=== PATIENT | female | born 1955 | race Caucasian/White ===

== ENCOUNTER → 2017-10-18 | Outpatient (CLI) | payer SELFPAY | LOC: COL.RAD 06:38 | DX: Z01.89 Encounter for other specified special examinations (principal) ==

== ENCOUNTER → 2017-10-24 | Outpatient (CLI) | payer SELFPAY | LOC: COL.RAD 11:19 | DX: Z01.89 Encounter for other specified special examinations (principal) ==

== ENCOUNTER → 2017-11-08 | Outpatient (CLI) | payer SELFPAY | LOC: COL.RAD 09:30 | DX: Z01.89 Encounter for other specified special examinations (principal) ==